=== PATIENT | male | born 1995 | race Caucasian/White ===

== ENCOUNTER 2016-04-21 21:45 | Emergency (ER) | payer OTHER ==
[~2016-04-21] VITALS: Ht 193 cm; Wt 100.0 kg
[2016-04-21 21:48] VITALS: BP 141/74; PULSE 82; TEMP 36.5; O2SAT 100; Ht 193 cm; Wt 100.0 kg
[2016-04-21] MEDS ORDERED: GELATIN SPONGE 12-7MM ONE (21:51)
--- NOTE | 2016-04-21 22:01 | EMERGENCY ROOM VISIT NOTE ---
ED Visit Note First contact with patient: 21:47 CHIEF COMPLAINT: Finger laceration HISTORY OF PRESENT ILLNESS: This 20-year-old male patient presents to the emergency department ambulatory after cutting the left fifth finger when he was ice-skating earlier today. The patient states that his finger bumped another persons ice skate The bleeding has stopped. Denies weakness or numbness of the finger. The patient has full range of motion of the fingers. The patient denies any pain. The patient denies any other injuries. The patient's tetanus shot is up to date. REVIEW OF SYSTEMS: A 6 system review of systems was completed with positives and pertinent negatives listed in the HPI. ALLERGIES: No known allergies MEDICATIONS: Patient denies PMH: Patient denies SOCIAL HISTORY: The patient is a student. He lives locally PHYSICAL EXAM: Vital Signs: Reviewed Nurse's notes, vital signs stable. GENERAL : This is a 20-year-old male, in no acute distress, well developed, well nourished. SKIN: There is a very superficial, 3cm long skin avulsion on the palmar aspect of the left fifth finger. The wound edges do not gape. This is not full-thickness. There is no foreign material in the wound and it looks clean. There is no bleeding. No deep structures such as tendons, bones, or nerves are seen in the base of the wound. Extension and flexion of the finger is full and strong. Full range of motion of the wrist and other fingers. Capillary refill less than 2 seconds. Normal sensation to light and sharp touch. EMERGENCY DEPARTMENT COURSE: I examined the patient. The patient has a very superficial skin avulsion. There is no significant bleeding. The patient has no pain with movement or palpation of the finger. The wound was cleaned with saline. Gelfoam was applied as well as a bulky dressing. The patient was discharged home in good condition. Vital Signs Date Time Temp Pulse Resp B/P Pulse Ox O2 Delivery O2 Flow Rate FiO2 04/21/16 21:48 36.5 82 18 141/74 100 Room Air Departure Information Impression Primary Impression: Skin avulsion Dispostion Home / Self-Care Condition GOOD Referrals No Doctor, Assigned (PCP) Patient Instructions ED Gelfoam Dressing, [email or web address] Additional Instructions Keep dressing in place for 48 hrs, then remove. Soak foam in water until it falls off easily, then clean wound daily, cover with an antibiotic ointment and keep covered until it heals. Return for any signs of infection (increasing redness, swelling, drainage, fever). Ice and elevate for swelling and pain. Ibuprofen 600 mg every 6 hrs for pain. Keep covered when in sun until fully healed then SPF 50 or higher for one year. Vitamin E oil if desired two weeks after fully healed for reduction of scar.
== END 2016-04-21 22:24 | disposition home or self-care (01) ==
LOC: C.EDD 21:48
DX: S61.217A Laceration without foreign body of left little finger without damage to nail, initial encounter (principal); W22.8XXA Striking against or struck by other objects, initial encounter; Y93.21 Activity, ice skating